=== PATIENT | female | born 2000 | race Caucasian/White ===

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

== ENCOUNTER 2022-02-23 22:19 | Emergency (ER) | payer MEDICAID | END 2022-02-24 01:22 | disposition home or self-care (01) | LOC: JP.ED 22:19 | DX: O36.4XX0 Maternal care for intrauterine death, not applicable or unspecified (principal); Z3A.09 9 weeks gestation of pregnancy | CPT/HCPCS: 76801; 99284 ==

== ENCOUNTER 2022-09-14 20:57 | Emergency (ER) | payer MEDICAID ==
[2022-09-14 22:08] LABS: BILIRUBIN,URINE NEGATIVE (NEGATIVE); COLOR,URINE YELLOW (YELLOW); GLUCOSE,URINE NEGATIVE (NEGATIVE); KETONES,URINE NEGATIVE (NEGATIVE); LEUKOCYTE ESTERASE,URINE LARGE (NEGATIVE); NITRITE,URINE NEGATIVE (NEGATIVE); OCCULT BLOOD,URINE LARGE (NEGATIVE); PROTEIN,URINE NEGATIVE (NEGATIVE); UROBILINOGEN,URINE 0.2 EU/dL (0.2-1.0)
[2022-09-14 22:16] LABS: AMORPHOUS SEDIMENT,URINE NOT SEEN; APPEARANCE,URINE CLOUDY (CLEAR); BACTERIA,URINE MODERATE; EPITHELIAL CELLS,URINE FEW; MUCUS,URINE FEW; WBC,URINE 40-50 (0-5)
== END 2022-09-14 23:57 | disposition home or self-care (01) ==
LOC: JP.ED 20:57
DX: O30.032 Twin pregnancy, monochorionic/diamniotic, second trimester (principal); O23.42 Unspecified infection of urinary tract in pregnancy, second trimester; N39.0 Urinary tract infection, site not specified; O23.592 Infection of other part of genital tract in pregnancy, second trimester; B96.89 Other specified bacterial agents as the cause of diseases classified elsewhere; Z3A.17 17 weeks gestation of pregnancy; Z37.2 Twins, both liveborn; Z79.82 Long term (current) use of aspirin
CPT/HCPCS: 76815; 81001; 87210; 99283; 99284

== ENCOUNTER 2023-02-01 10:46 | Emergency (ER) | payer MEDICAID ==
[2023-02-01 11:53] LABS: BASOPHILS ABSOLUTE AUTO 0.06 K/uL (0.00-0.10); BASOPHILS PERCENT AUTO 0.3 % (0.1-1.3); EOSINOPHILS ABSOLUTE AUTO 0.31 K/uL (0.00-0.40); EOSINOPHILS PERCENT AUTO 1.4 % (0.0-5.4); HEMATOCRIT 31.7 % (34.3-46.0); HEMOGLOBIN 10.6 g/dL (11.2-15.5); IMMATURE GRAN ABSOLUTE AUTO 0.34 K/uL (0.00-0.23); IMMATURE GRAN PERCENT AUTO 1.5 % (0.0-0.7); LYMPHOCYTES ABSOLUTE AUTO 1.14 K/uL (0.8-3.3); LYMPHOCYTES PERCENT AUTO 5.2 % (11.4-47.7); MEAN CORPUSCULAR HEMOGLOBIN 28.3 pg (31.6-35.5); MEAN CORPUSCULAR HGB CONC 33.4 g/dL (31.6-35.5); MEAN CORPUSCULAR VOLUME 84.8 fL (81.4-99.0); MONOCYTES PERCENT AUTO 2.7 % (3.3-12.6); NEUTROPHILS ABSOLUTE AUTO 19.64 K/uL (1.0-7.6); NEUTROPHILS PERCENT AUTO 88.9 % (40.0-78.1); PLATELET COUNT,PLT 484 K/uL (130-375); RED BLOOD CELL COUNT 3.74 M/uL (3.77-5.24); WHITE BLOOD CELL COUNT,WBC 22.1 K/uL (3.2-11.0)
[2023-02-01] MEDS ORDERED: Ampicillin/Sulbactam Na 3 GM in Sodium Chloride 0.9% 100 ML IV ONE (12:24)
[2023-02-01] MEDS ORDERED: Sodium Chloride 0.9% 1,000 ML IV ONE (12:25)
[2023-02-01 12:30] LABS: CALCIUM 8.9 mg/dL (8.5-10.1); CREATININE 0.7 mg/dL (0.6-1.0); EST CRCL DRUG DOSING (CG) 101.39 mL/min; MAGNESIUM 1.7 mg/dL (1.8-2.4); POTASSIUM,K 3.6 mmol/L (3.6-5.2); TSH ULTRASENSITIVE 0.241 uIU/mL (0.358-3.740)
[2023-02-01 12:31] LABS: ANION GAP 13.6 mmol/L (5.0-14.0)
[2023-02-01 13:36] LABS: AMORPHOUS SEDIMENT,URINE NOT SEEN; APPEARANCE,URINE SLIGHTLY CLOUDY (CLEAR); BACTERIA,URINE MODERATE; BILIRUBIN,URINE NEGATIVE (NEGATIVE); COLOR,URINE YELLOW (YELLOW); EPITHELIAL CELLS,URINE FEW; GLUCOSE,URINE NEGATIVE (NEGATIVE); KETONES,URINE NEGATIVE (NEGATIVE); LEUKOCYTE ESTERASE,URINE SMALL (NEGATIVE); MUCUS,URINE MODERATE; NITRITE,URINE NEGATIVE (NEGATIVE); OCCULT BLOOD,URINE LARGE (NEGATIVE); PROTEIN,URINE TRACE mg/dL (NEGATIVE); RBC,URINE 20-30 (0-5); UROBILINOGEN,URINE 0.2 EU/dL (0.2-1.0)
== END 2023-02-01 15:14 | disposition home or self-care (01) ==
LOC: JP.ED 10:46
DX: O86.22 Infection of bladder following delivery (principal); N30.01 Acute cystitis with hematuria; N80.A0 Endometriosis of bladder, unspecified depth; Z86.16 Personal history of COVID-19; Z79.899 Other long term (current) drug therapy
CPT/HCPCS: 36415; 80048; 81001; 83735; 84439; 84443; 85025; 87086; 96365; 99284; J0295; J3490; J7030; 99283

== ENCOUNTER 2023-04-24 09:47 | Day surgery (SDC) | payer MEDICAID ==
[2023-04-24] MEDS ORDERED: Sodium Chloride 0.9% 1,000 ML IV SCH (10:15)
[2023-04-24] MEDS ORDERED: Propofol 200 MG/20 ML SDV ONE ×2 (12:09→12:10)
[2023-04-24] MEDS ORDERED: Midazolam 1 MG/ML 2 ML SDV ONE (12:10)
[2023-04-24] MEDS ORDERED: fentaNYL 100 MCG/2 ML SDV ONE (12:10)
== END 2023-04-24 14:52 | disposition home or self-care (01) ==
LOC: JP.SDS 09:47
PROVIDERS: ATTEND Surgery
DX: R10.9 Unspecified abdominal pain (principal)
CPT/HCPCS: 45378; 81025; J2250; J2704; J3010; J7030